=== PATIENT | female | born 1980 | race Asian ===

== ENCOUNTER 2017-03-02 12:16 | Inpatient (IN) | payer SELFPAY ==
[~2017-03-02] VITALS: Ht 162 cm; Wt 66.7 kg
[2017-03-02] MEDS ORDERED: LR 1,000 ML IV SCH ×2 (12:28→13:32)
[2017-03-02] MEDS ORDERED: CITRIC ACID/SODIUM CITRATE 30 ML UDC PO ONE (12:30)
[2017-03-02] MEDS ORDERED: CEFAZOLIN 2 GM IVPB PREMIX 50 ML IV ONE ×2 (12:30→12:41)
[2017-03-02] MEDS ORDERED: BUPIVACAINE /PF 0.75% 10 ML VIAL INJ ONE (12:38)
[2017-03-02] MEDS ORDERED: LR 1,000 ML IV.SOLN IV ONE (12:38)
[2017-03-02] MEDS ORDERED: NS IRRIG SOLN 1000 ML IR ONE (12:38)
[2017-03-02] MEDS ORDERED: MORPHINE SULFATE 10MG/10ML PF AMP EP ONE (12:38)
[2017-03-02] MEDS ORDERED: DEXAMETHASONE SOD PHOSPHATE 4 MG/ML VIAL IVP ONE (12:38)
[2017-03-02] MEDS ORDERED: OXYTOCIN 10 UNIT/ML VIAL IV ONE (12:38)
[2017-03-02] MEDS ORDERED: CITRIC ACID/SODIUM CITRATE 30 ML UDC ONE (13:03)
[2017-03-02 13:08] LABS: BASOPHILS % (AUTO) 0.3 % (0.0-2.0); EOSINOPHILS % (AUTO) 0.4 % (0.0-4.0); HEMATOCRIT 32.2 % (36-48); HEMOGLOBIN 10.7 g/dL (12.0-16.0); LYMPHOCYTES % (AUTO) 16.7 % (20.5-51.5); MEAN CORPUSCULAR HEMOGLOBIN 32 pg (27-31); MEAN CORPUSCULAR HGB CONC 33 % (32-36); MEAN CORPUSCULAR VOLUME 96 fL (79.0-98.0); MONOCYTES # (AUTO) 0.4 K/uL (0.0-1.0); MONOCYTES % (AUTO) 6.7 % (1.7-9.3); NEUTROPHILS # (AUTO) 4.8 K/uL (1.8-7.7); NEUTROPHILS % (AUTO) 75.9 % (40.0-70.0); PLATELET COUNT (AUTO) 236 K/uL (130-430); RED BLOOD CELL COUNT(AUTO) 3.34 MIL/uL (4.2-6.2); RED CELL DISTRIBUTION WIDTH 12.7 % (9.0-15.0); WHITE BLOOD COUNT (AUTO) 6.2 K/uL (4.8-10.8)
[2017-03-02] MEDS ORDERED: OXYTOCIN/NORMAL SALINE 1,000 ML IV ONE ×3 (13:18→15:06)
[2017-03-02] MEDS ORDERED: HYDROcodone/ACETAMIN 5-325 MG TAB (NORCO/ VICODIN) PO PRN ×2 (13:30)
[2017-03-02] MEDS ORDERED: SIMETHICONE 80 MG TAB.CHEW PO PRN (13:30)
[2017-03-02] MEDS ORDERED: ANUSOL 1 EA SUPP.RECT (PREPARATION H) RC PRN ×2 (13:30)
[2017-03-02] MEDS ORDERED: OXYCODONE/ACETAMINOPHEN 5-325 TABLET PO PRN ×4 (13:30)
[2017-03-02] MEDS ORDERED: DOCUSATE SODIUM 100 MG CAPSULE PO PRN (13:30)
[2017-03-02] MEDS ORDERED: MEASLES,MUMPS&RUBELLA VACC/PF 12500 UNIT/0.5 ML VIAL SUBQ PRN ×2 (13:30)
[2017-03-02] MEDS ORDERED: LANOLIN 7 GM OINT. TP PRN ×2 (13:30)
[2017-03-02] MEDS ORDERED: MORPHINE SULFATE 10MG/10ML PF AMP SP SCH (13:45)
[2017-03-02] MEDS ORDERED: MEPERIDINE HCL/PF 25 MG/ML DISP.SYRIN IVP PRN ×2 (13:45)
[2017-03-02] MEDS ORDERED: NALOXONE HCL 0.4 MG/ML AMP (NARCAN) IVP PRN (13:45)
[2017-03-02] MEDS ORDERED: HYDROmorphone 1 MG INJ. 1 MG/ML AMPUL IVP PRN ×2 (13:45)
[2017-03-02] MEDS ORDERED: NALBUPHINE HCL 10 MG/ML AMP IVP PRN (13:45)
[2017-03-02] MEDS ORDERED: ONDANSETRON HCL 4 MG/2 ML VIAL IVP PRN ×2 (13:45)
[2017-03-02] MEDS ORDERED: HYDROmorphone 2 MG/ML VIAL IVP PRN ×2 (13:45)
[2017-03-02] MEDS ORDERED: ePHEDrine sulfate 50 MG/ML VIAL IVP PRN (13:45)
[2017-03-02 14:46] VITALS: BP_SYST 113
[2017-03-02] MEDS ORDERED: CEFAZOLIN 1 GM IVPB PREMIX 50 ML IV SCH (18:00)
[2017-03-02] MEDS: DIPHENHYDRAMINE INJ 50 MG/ML VIAL IVP PRN (19:49)
[2017-03-02] MEDS: DOCUSATE SODIUM 100 MG CAPSULE PO PRN (19:49)
[2017-03-02] MEDS: CEFAZOLIN 1 GM IVPB PREMIX 50 ML IV SCH (19:49)
[2017-03-02] MEDS: SIMETHICONE 80 MG TAB.CHEW PO PRN (19:49)
[2017-03-02] MEDS ORDERED: TEMAZEPAM 15 MG CAPSULE PO PRN ×2 (21:00)
[2017-03-03] MEDS: DIPHENHYDRAMINE INJ 50 MG/ML VIAL IVP PRN (00:09)
[2017-03-03] MEDS: CEFAZOLIN 1 GM IVPB PREMIX 50 ML IV SCH ×2 (00:09→06:31)
[2017-03-03] MEDS ORDERED: IBUPROFEN 600 MG TABLET PO SCH (06:00)
[2017-03-03] MEDS: IBUPROFEN 600 MG TABLET PO SCH ×3 (06:31→18:09)
[2017-03-03 07:47] LABS: BASOPHILS % (AUTO) 0.2 % (0.0-2.0); EOSINOPHILS % (AUTO) 0.2 % (0.0-4.0); HEMATOCRIT 26.8 % (36-48); HEMOGLOBIN 9.4 g/dL (12.0-16.0); LYMPHOCYTES # (AUTO) 1.2 K/uL (1.0-5.5); LYMPHOCYTES % (AUTO) 14.8 % (20.5-51.5); MEAN CORPUSCULAR HEMOGLOBIN 33 pg (27-31); MEAN CORPUSCULAR HGB CONC 35 % (32-36); MEAN CORPUSCULAR VOLUME 94 fL (79.0-98.0); MONOCYTES # (AUTO) 0.4 K/uL (0.0-1.0); MONOCYTES % (AUTO) 5.2 % (1.7-9.3); NEUTROPHILS # (AUTO) 6.2 K/uL (1.8-7.7); NEUTROPHILS % (AUTO) 79.6 % (40.0-70.0); PLATELET COUNT (AUTO) 219 K/uL (130-430); RED BLOOD CELL COUNT(AUTO) 2.86 MIL/uL (4.2-6.2); RED CELL DISTRIBUTION WIDTH 12.1 % (9.0-15.0); WHITE BLOOD COUNT (AUTO) 7.8 K/uL (4.8-10.8)
[2017-03-03] MEDS: DOCUSATE SODIUM 100 MG CAPSULE PO PRN (20:20)
[2017-03-03] MEDS: SIMETHICONE 80 MG TAB.CHEW PO PRN (20:21)
[2017-03-04] MEDS: IBUPROFEN 600 MG TABLET PO SCH ×3 (00:25→12:16)
[2017-03-04] MEDS: SIMETHICONE 80 MG TAB.CHEW PO PRN (12:17)
== END 2017-03-04 14:15 | disposition home or self-care (01) | DRG 766 ==
LOC: SPU 12:16
PROVIDERS: ADMIT Obstetrics & Gynecology; ATTEND Obstetrics & Gynecology
PROC: 10D00Z1 Extraction of Products of Conception, Low, Open Approach (ICD-10-PCS; principal; 2017-03-02 13:15)
DX: O45.93 Premature separation of placenta, unspecified, third trimester (principal); E03.9 Hypothyroidism, unspecified; O99.284 Endocrine, nutritional and metabolic diseases complicating childbirth; Z37.0 Single live birth; Z3A.39 39 weeks gestation of pregnancy
CPT/HCPCS: 36415; 85025; 86886; 86900; 86901; 94760; J0690; J1100; J1200; J2274; J2590; J3490; J7120